=== PATIENT | male | born 1960 | race African-American/Black ===

== ENCOUNTER 2020-07-12 10:20 | Outpatient (REF) | payer MEDICAID, SELFPAY ==
--- NOTE | ~2020-07-12 | XR_ITS ---
EXAMINATION: XR CHEST CLINICAL INFORMATION: Dyspnea COMPARISON: None TECHNIQUE: 2 views of the chest were obtained. FINDINGS: No significant abnormality is noted involving the heart, lungs, mediastinum, bony thorax or soft tissues. XR/XR chest 2V IMPRESSION: Unremarkable chest examination.
== END 2020-07-12 10:21 | disposition home or self-care (01) ==
LOC: HO.XRAY 10:20
PROVIDERS: PCP Internal Medicine Geriatric Medicine; Visit Provider Internal Medicine Geriatric Medicine
DX: R06.00 Dyspnea, unspecified (principal)
CPT/HCPCS: 71046

== ENCOUNTER 2020-09-28 06:56 | Outpatient (REF) | payer MEDICAID, SELFPAY ==
--- NOTE | ~2020-09-28 | CT_ITS ---
EXAMINATION: CT HEAD WITHOUT CONTRAST CLINICAL INFORMATION: Pain in the right temporal region 1 opening jaw. History of trauma 3 weeks ago. COMPARISON: None TECHNIQUE: Contiguous axial imaging was performed from the skull base to vertex without intravenous administration of contrast. This CT examination was performed using dose optimization techniques as appropriate, variously including the following: *Automated exposure control *Adjustment of mA and/or kV according to patient size (this includes techniques or standardized protocols for targeted exams where dose is matched to indication/reason for exam; i.e. extremities or head) *Use of iterative reconstruction technique DLP: 806 mGy-cm FINDINGS: There is no evidence of acute intracranial hemorrhage or territorial infarction. No abnormal mass effect or midline shift is seen. Fisher to white matter differentiation is well preserved. No extra-axial fluid collections are identified. The ventricles are normal in size. There is no abnormal attenuation within the brain parenchyma. The osseous structures and soft tissues are normal. The temporomandibular joints are normal-appearing. The mastoid air cells and visualized portions of the paranasal sinuses are clear. CT/CT head/brain wo con IMPRESSION: Normal head CT.
== END 2020-09-28 06:57 | disposition home or self-care (01) ==
LOC: HO.CT 06:56
PROVIDERS: PCP Emergency Medicine; Visit Provider Emergency Medicine
DX: S09.8XXA Other specified injuries of head, initial encounter (principal); X58.XXXA Exposure to other specified factors, initial encounter; Y93.9 Activity, unspecified; Y92.9 Unspecified place or not applicable; Y99.9 Unspecified external cause status
CPT/HCPCS: 70450

== ENCOUNTER 2022-11-14 09:01 | Outpatient (REF) | payer MEDICAID, SELFPAY ==
[2022-11-14 11:44] LABS: Alanine Aminotransferase 34 U/L (0-40); Albumin Level 3.8 g/dL (3.5-5.0); Alkaline Phosphatase 66 U/L (39-117); Anion Gap 11 (12-20); Aspartate Amino Transferase 33 U/L (5-37); Bilirubin Total 0.3 mg/dL (0.0-1.0); Blood Urea Nitrogen 14 mg/dL (9-16); Calcium 9.4 mg/dL (8.4-10.2); Carbon Dioxide 24 mmol/L (22-29); Chloride 109 mmol/L (96-108); Cholesterol 135 mg/dL (<200); Estimated Glomerular Filt Rate > 60; Glucose Random 132 mg/dL (60-115); HDL Cholesterol 45 mg/dL (>40); LDL Cholesterol Calculated 75 mg/dL (<100); Potassium 4.3 mmol/L (3.3-5.1); Sodium 140 mmol/L (135-145); Total Protein 7.1 g/dL (6.5-8.0); Triglycerides 76 mg/dL (<150)
[2022-11-14 12:21] LABS: Creatinine Urine 176.44 mg/dL; Microalbum/Creatinine Ratio Ur 4.5 ug/mg cr (<30)
== END 2022-11-14 09:02 | disposition home or self-care (01) ==
LOC: HO.HHCL 09:01
PROVIDERS: Visit Provider Internal Medicine Geriatric Medicine
DX: I10 Essential (primary) hypertension (principal); E78.00 Pure hypercholesterolemia, unspecified; E11.9 Type 2 diabetes mellitus without complications; Z79.899 Other long term (current) drug therapy
CPT/HCPCS: 36415; 80053; 80061; 82043; 82570

== ENCOUNTER 2023-01-29 11:44 | Outpatient (REF) | payer MEDICAID, SELFPAY ==
[2023-01-30 08:03] LABS: ~Hepatitis C Antibody Nonreactive (Nonreactive)
== END 2023-01-29 11:45 | disposition home or self-care (01) ==
LOC: HO.HHCL 11:44
PROVIDERS: Visit Provider Internal Medicine Geriatric Medicine
DX: Z11.59 Encounter for screening for other viral diseases (principal)
CPT/HCPCS: 36415; 86803

== ENCOUNTER 2023-02-06 10:23 | Outpatient (AMB) | payer MEDICAID, SELFPAY ==
--- NOTE | 2023-02-06 10:25 | A.OFFVIS_ITS ---
Intake Vital Signs 02/06/23 10:32 Height 5 ft 7 in Weight 251 lb BMI 39.3 Handedness Right Intake Visit Reasons: New Pt - left 4th trigger finger Intake Note: Benja is a 62 year old right hand dominant male who presents today as a new patient for a evaluation of his left ring trigger finger. Patient reports his r ing finger has been locking and catching for about 6 months. No previous treatment. Allergies lisinopril Allergy (Intermediate, Verified 02/06/23 10:35) Cough HPI New Pt - left 4th trigger finger HPI Details 62-year-old male who presents in the off ice today, as a new patient, for an evaluation of left ring finger trigger finger. The patient reports his left ring finger has been locking and catching for about 6 months, since 08/2022. He denies any prior treatment. PFSH Surgical History (Updated 02/06/23 @ 10:33 by Charlene Trevizo) Hx of appendectomy Social History (Updated 02/06/23 @ 10:34 by Charlene Trevizo) Alcohol intake: never Patient Tobacco Use Status: Never used Tobacco Current occupational status: retired and disabled Current occupation: right hand dominant Review of Systems Const All systems reviewed & are unremarkable except as noted in HPI and below Physical Exam Vital Signs: BMI result Body Mass Index 39.3 Const General: cooperative and no acute distress Orientation/consciousness: patient oriented x3 Resp Effort & Inspection: normal respiratory effort and able to speak in complete sentences Cardio Peripheral pulses: Peripheral pulses 2+ throughout Skin General skin exam: no rashes or lesions noted Neuro General: patient oriented x3 Extrem Other: Left hand: Normal to inspection. No ecchymosis, erythema, or edema. Tenderness to palpation over the left ring finger A1 isabella with active locking and catching. Able to perform full finger flexion, extension, abduction, adduction, finger cross, okay sign, and thumbs up without deficit. Able to make a closed fist. Sensation intact. Capillary refill is brisk. Radial pulse intact. Assessment & Plan Assessment & Plan (1) Trigger finger, left ring finger: Code(s): M65.342 - Trigger finger, left ring finger Plan Mr. Riggs is a 62-year-old male who presents in the office today, as a new patient, for an evaluation of left ring finger trigger finger. The patient reports his left ring finger has been locking and catching for about 6 months, since 08/2022. He denies any prior treatment. The patient would like to move forward with surgical intervention. A preoperative appointment will be made with Dr. Braxton once she returns from her leave to meet with the patient and to discuss the procedure in more detail. Follow up will be at the preoperative appointment, or sooner if needed. Patient Instructions: Scribed for Vanessa Munroe PA-C by Cindy De La Rosa medical laboratory technologist, on 02/06/2023 at 10:33 am, EST. Coding Level of Care Code New Pt Level 4 (37061) Diagnoses Trigger finger, left ring finger M65.342
[2023-02-06 10:32] VITALS: BMI 39.3
== END 2023-02-06 10:53 | disposition home or self-care (01) ==
PROVIDERS: PCP Emergency Medicine; Visit Provider Physician Assistant
DX: M65.342 Trigger finger, left ring finger (principal)
CPT/HCPCS: 99204

== ENCOUNTER → 2023-02-06 10:23 | Outpatient (BNVA) | payer MEDICAID, SELFPAY | PROVIDERS: PCP Emergency Medicine; Visit Provider Physician Assistant | DX: M65.342 Trigger finger, left ring finger (principal) | CPT/HCPCS: 99212 ==

== ENCOUNTER 2023-05-01 10:27 | Outpatient (AMB) | payer MEDICAID, SELFPAY ==
[2023-05-01 10:32] VITALS: BMI 39.3
--- NOTE | 2023-05-01 10:32 | A.OFFVIS_ITS ---
Intake Vital Signs 05/01/23 10:32 Height 5 ft 7 in Weight 251 lb BMI 39.3 Intake Visit Reasons: Pre Op Lt RF trigger release 05/10/23 AR Intake Note: Benja 62 yr old male presents today for his Pre Op visit for his left RF trigger release 05/10/23 AR. Allergies lisinopril Allergy (Intermediate, Verified 05/01/23 10:32) Cough HPI Pre Op Lt RF trigger release 05/10/23 AR HPI Details Benja is a 62 year old right hand dominant Diabetic man who presents to discuss his left ring trigger finger. He complains of ~8 months painful locking of his ring finger He would like to discuss treatment options He is a Diabetic and he says this is well-controlled. He believes his most recent HgA1c was ~6.0% sometime in the last few months. He is unsure of the exact date & number. He says he is unemployed [facility] Medical History (Updated 05/01/23 @ 11:18 by Eben Kiran) Hyperlipidemia Hypertension Diabetes Surgical History Hx of appendectomy Social History Alcohol intake: never Patient Tobacco Use Status: Never used Tobacco Current occupational status: retired and disabled Current occupation: right hand dominant Review of Systems Const All systems reviewed & are unremarkable except as noted in HPI and below Physical Exam Vital Signs: BMI result Body Mass Index 39.3 Const General: cooperative, healthy appearing and no acute distress Orientation/consciousness: patient oriented x3 HEENT Head: Yes normocephalic and Yes atraumatic Eyes EOM: EOMs intact bilaterally Resp Effort & Inspection: normal respiratory effort and able to speak in complete sentences Cardio Jugular venous distension: no JVD Skin General skin exam: turgor normal Rashes: no rashes Neuro General: patient oriented x3 Extrem Other: Evaluation of Left Upper Extremity: The patient is alert, oriented, and in no acute distress Neuro: Median, Ulnar, Radial nerves motor and sensory intact and sensation is normal to the tips of all digits Vascular: Cap refill brisk ROM: He can make a fist and extend all his digits Visible and palpable locking and catching of the ring finger Tender over the A1 isabella of the ring finger Skin: No lacerations or abrasions. General: No Ecchymosis. No Erythema or evidence of infection. Psych Appearance: grossly normal Affect: normal affect Attitude: cooperative Assessment & Plan Assessment & Plan (1) Trigger finger, left ring finger: Code(s): M65.342 - Trigger finger, left ring finger (2) Diabetes: Code(s): E11.9 - Type 2 diabetes mellitus without complications Plan Assessment & Plan: 1. Left ring finger trigger finger I educated her about this condition I discussed operative and non-operative treatment options The patient would like to proceed with surgery The risks and benefits of operative treatment were discussed with the patient and the patient wishes to proceed with surgery. These risks include, but are not limited to risk of damage to blood vessels, nerves, tendons, infection, recurrence, incomplete relief of preoperative symptoms, persistent pain, possible need for further surgery and the risks associated with regional blocks and anesthesia. The plan is to take the patient to the operating room sometime on 05/10/23 for the following procedures: 1. Left ring finger trigger release, under local All of the preoperative paperwork including the consent was reviewed today. All the patient's questions were answered. The patient understands that they will be contacted by our health club attendant soon to schedule this procedure He denies blood thinners, asthma, heart, lung, kidney issues He is a Diabetic and says this is well controlled, but we do not have a HgA1c on file. He needs a recent HgA1c <8.1% to proceed with surgery Scribed for Lilia Braxton MD by Eben Kiran medical genetics director, on 05/01/23 at 11:15 AM, EST. Coding Level of Care Code Est Pt Level 4 (71391) Diagnoses Trigger finger, left ring finger M65.342 Diabetes E11.9
== END 2023-05-01 11:16 | disposition home or self-care (01) ==
PROVIDERS: PCP Emergency Medicine; Visit Provider Orthopaedic Surgery
DX: M65.342 Trigger finger, left ring finger (principal); E11.9 Type 2 diabetes mellitus without complications
CPT/HCPCS: 99214

== ENCOUNTER → 2023-05-01 10:27 | Outpatient (BNVA) | payer MEDICAID, SELFPAY | PROVIDERS: PCP Emergency Medicine; Visit Provider Orthopaedic Surgery | DX: Z01.818 Encounter for other preprocedural examination (principal); M65.342 Trigger finger, left ring finger; E11.9 Type 2 diabetes mellitus without complications | CPT/HCPCS: 99212 ==

== ENCOUNTER 2023-05-10 08:31 | Day surgery (SDC) | payer MEDICAID, SELFPAY ==
--- NOTE | 2023-05-10 09:01 | W.PM.OPN ---
Operative Note Operative Note Date of Service: 05/10/23 Narrative: Operative Note Preop diagnosis: 1. Left ring finger Trigger finger Postop diagnosis: 1. Left ring finger Trigger finger Procedure: 1. Left ring finger A1 isabella release Surgeon: Lilia Braxton MD Anesthesia: local block using 1% lidocaine with epinephrine Findings: No locking or catching after A1 isabella release EBL: Less than 5 mL Tourniquet time: None Specimens: None Complications: None Disposition: Brought to recovery room in stable condition Plan: Follow-up for 10-14 days for wound check and suture removal Indications: The patient is 62 years old, with a left ring finger trigger finger that has been unresponsive to nonoperative management. The risks and benefits of operative treatment including but not limited to risk of damage to blood vessels, nerves, tendons, infection, persistent pain, persistent symptoms, recurrence or possible need for additional surgery were discussed with the patient and the patient wishes to proceed with surgery. Procedure: Once consent was obtained a local block was performed in the preop area using a combination of 1% lidocaine with epinephrine. The patient was then brought back to the operating suite and placed on the operative table in supine position. The left upper extremity was prepped and draped in a standard surgical fashion. Once assured that we had a good block, a 1.5 cm oblique incision was made centered over the A1 isabella of the left ring finger . The incision was made through the skin to the subcutaneous tissues using a #15 blade. Careful dissection was made down to the level of the A1 isabella using tenotomy scissors, with care being taken to protect the nearby neurovascular structures. A longitudinal incision was made in the A1 isabella 1st using a #15 blade, then using tenotomy scissors under direct visualization. The A1 isabella was noted to be thickened. Following our A1 isabella release, we no longer saw any locking or catching of the digit with flexion and extension. Once satisfied with our A1 isabella release the wound was copiously irrigated with normal saline and hemostasis was obtained with a brief period of local pressure. The skin edges were reapproximated with some 5.0 nylon suture material and a sterile dressing was applied. The patient appears to have tolerated the procedure well and with no complications. All digits were well vascularized at the conclusion of the case.
[2023-05-10 09:18] VITALS: BP 155/86; PULSE 71; RESP 18; TEMP 36.3; O2SAT 95; BMI 40.6
--- NOTE | 2023-05-10 10:56 | MHC.SHP ---
Pre-Procedural Eval Section A - 24 Hr Update-Section A only Date of Service: 05/10/23 The patient is an INPATIENT: No Changes since office visit: No Cold of Flu in the past 2 weeks, No New Medical Problems, No Changes in Medication and No Patient answered all questions The patient has been examined within 24 hours of the surgical procedure. The History & Physical has been completed within 30 days and I have reviewed it.: Yes Section B - Complete if H&P > 30 days Chief Complaint: Trigger finger, left ring finger Allergies: Allergies Allergy/AdvReac Type Severity Reaction Status Date / Time lisinopril Allergy Intermediate Cough Verified 05/01/23 10:32 Plan I have reviewed the history and physical and performed a pertinent physical examination on my patient. No changes have occurred unless specified. Time Spent With Patient Time: Total time managing care of this patient today ____ minutes.
[2023-05-10 11:56] VITALS: BP 148/88; PULSE 63; RESP 20; O2SAT 95
== END 2023-05-10 12:15 | disposition home or self-care (01) ==
PROVIDERS: PCP Internal Medicine Geriatric Medicine; Visit Provider Orthopaedic Surgery
PROC: (CPT 26055; principal; 2023-05-10 11:20)
DX: M65.342 Trigger finger, left ring finger (principal); I10 Essential (primary) hypertension; E78.5 Hyperlipidemia, unspecified; E11.9 Type 2 diabetes mellitus without complications; Z88.8 Allergy status to other drugs, medicaments and biological substances
CPT/HCPCS: 26055; J0171

== ENCOUNTER → 2023-05-10 08:31 | Outpatient (BNV) | payer MEDICAID, SELFPAY | PROVIDERS: PCP Internal Medicine Geriatric Medicine; Visit Provider Orthopaedic Surgery | DX: M65.342 Trigger finger, left ring finger (principal) | CPT/HCPCS: 26055 ==

== ENCOUNTER 2023-05-23 12:42 | Outpatient (AMB) | payer MEDICAID, SELFPAY ==
--- NOTE | 2023-05-23 12:53 | MHC.OFFVIS ---
Intake Vital Signs 05/23/23 12:54 Height 5 ft 7 in Weight 257 lb BMI 40.2 Intake Visit Reasons: PO Lt RF trigger release 05/10/23 AR Intake Note: Benja 62 yr old male presents today for his P/O visit for his left RF trigger release from 05/10/23. States his finger no longer triggers. He has mild swelling. Allergies lisinopril Allergy (Intermediate, Verified 05/23/23 12:56) Cough HPI PO Lt RF trigger release 05/10/23 AR HPI Details Benja is a 62 year old right hand dominant Diabetic man who returns S/P left ring finger trigger release, DOS: 05/10/23. He says he is doing well, denies any locking or catching, and is happy with the results of his surgery. He does feel some mild swelling in his finger. [facility] Medical History (Updated 05/01/23 @ 11:18 by Eben Kiran) Hyperlipidemia Hypertension Diabetes Surgical History Hx of appendectomy Social History Alcohol intake: never Patient Tobacco Use Status: Never used Tobacco Current occupational status: retired and disabled Current occupation: right hand dominant Review of Systems Const All systems reviewed & are unremarkable except as noted in HPI and below Physical Exam Vital Signs: BMI result Body Mass Index 40.2 Const General: no acute distress and alert Orientation/consciousness: patient oriented x3 Neuro General: patient oriented x3 Extrem Other: The patient was alert oriented and in no acute distress The incision is healing well with no erythema drainage or evidence of infection. Sutures removed and Steri-Strips applied He can make a fist and extend all his digits No locking or catching Sensation is intact Cap refill is brisk Psych Appearance: grossly normal Affect: normal affect Attitude: cooperative Assessment & Plan Assessment & Plan (1) Trigger finger, left ring finger: Code(s): M65.342 - Trigger finger, left ring finger (2) Diabetes: Code(s): E11.9 - Type 2 diabetes mellitus without complications Plan Assessment & Plan: 1. Left ring finger trigger finger, S/P release DOS: 05/10/23 The patient appears to be doing well post-operatively I educated him about the post-operative course I explained the signs and symptoms of infection, if the patient develops any new or worsening erythema, drainage, pain, or warmth they should contact the clinic or attend the ED. I discussed activity modifications, he is to lift nothing heavier than a cellphone for the next two weeks He will perform gentle ROM exercises at home He should avoid any underwater activities for the next 5 days He should gently massage about the incision site to reduce the risk of hypersensitivity He can follow up prn Scribed for Lilia Braxton MD by Eben Kiran, biomedical analytical scientist, on 05/23/23 at 1:10 PM, EST. Coding Level of Care Code Global (34234) Diagnoses Trigger finger, left ring finger M65.342 Diabetes E11.9
[2023-05-23 12:54] VITALS: BMI 40.2
== END 2023-05-23 13:13 | disposition home or self-care (01) ==
PROVIDERS: PCP Emergency Medicine; Visit Provider Orthopaedic Surgery
DX: M65.342 Trigger finger, left ring finger (principal); E11.9 Type 2 diabetes mellitus without complications
CPT/HCPCS: 99024

== ENCOUNTER → 2023-05-23 12:42 | Outpatient (BNVA) | payer MEDICAID, SELFPAY | PROVIDERS: PCP Emergency Medicine; Visit Provider Orthopaedic Surgery | DX: Z47.89 Encounter for other orthopedic aftercare (principal); Z98.890 Other specified postprocedural states; Z87.39 Personal history of other diseases of the musculoskeletal system and connective tissue | CPT/HCPCS: 99212 ==

== ENCOUNTER 2023-05-30 11:41 | Outpatient (REF) | payer MEDICAID, SELFPAY ==
--- NOTE | ~2023-05-30 | XR_ITS ---
EXAMINATION: XR KNEE, RIGHT CLINICAL INFORMATION: Chronic right knee pain COMPARISON: Right knee x-ray on 09/01/2014 TECHNIQUE: Four views of the right knee. FINDINGS: BONES: Bony structures are intact. There is no focal bone destruction or periosteal reaction seen. JOINTS: Alignment of joints is normal. SOFT TISSUE: Soft tissue is normal. No radiopaque foreign body or abnormal air collection is seen. XR/XR knee RT 4V IMPRESSION: 1. Unchanged Normal x-rays of right knee. No fracture or dislocation or signs of osteomyelitis are found.
== END 2023-05-30 11:42 | disposition home or self-care (01) ==
LOC: HO.HHCX 11:41
PROVIDERS: Visit Provider Internal Medicine Geriatric Medicine
DX: M25.561 Pain in right knee (principal); G89.29 Other chronic pain
CPT/HCPCS: 73564

== ENCOUNTER 2023-06-07 13:31 | Outpatient (REF) | payer MEDICAID, SELFPAY ==
--- NOTE | ~2023-06-07 | XR_ITS ---
EXAMINATION: XR CHEST CLINICAL INFORMATION: Cough since Sunday COMPARISON: 07/12/2020 TECHNIQUE: 2 views of the chest were obtained. FINDINGS: No significant abnormality is noted involving the heart, lungs, mediastinum, bony thorax or soft tissues. XR/XR chest 2V IMPRESSION: Unremarkable examination.
== END 2023-06-07 13:32 | disposition home or self-care (01) ==
LOC: HO.HHCX 13:31
PROVIDERS: Visit Provider Internal Medicine
DX: J10.1 Influenza due to other identified influenza virus with other respiratory manifestations (principal); R05.1 Acute cough
CPT/HCPCS: 71046

== ENCOUNTER 2023-06-21 13:36 | Outpatient (REF) | payer MEDICAID, SELFPAY ==
[2023-06-21 15:58] LABS: MANUAL DIFF FLAG NO
[2023-06-21 16:32] LABS: Creatinine Urine 244.72 mg/dL; Microalbum/Creatinine Ratio Ur 11.4 ug/mg cr (<30)
[2023-06-21 16:33] LABS: Basophils Absolute Auto 0.1 X10*3/uL (0.0-0.2); Basophils Percent Auto 0.8 % (0-2); Eosinophils Absolute Auto 0.2 X10*3/uL (0.0-0.4); Eosinophils Percent Auto 2.4 % (0-4); Hematocrit 45.6 % (42.0-52.0); Hemoglobin 14.9 g/dl (14.0-18.0); Imm Gran Abs Auto 0.03 X10*3/uL (0.00-0.03); Imm Gran Pct Auto 0.4 % (0.0-0.4); Lymphocytes Absolute Auto 2.2 X10*3/uL (1.2-4.9); Lymphocytes Percent Auto 26.4 % (20-40); Mean Corpuscular HGB Conc 32.7 g/dl (31.0-36.0); Mean Corpuscular Hemoglobin 28.4 pg (27.0-33.0); Mean Corpuscular Volume 86.9 fL (80.0-98.0); Mean Platelet Volume 12.8 fL (9.4-12.4); Monocytes Absolute Auto 0.6 X10*3/uL (0.1-1.2); Monocytes Percent Auto 7.3 % (2-11); Neutrophils Absolute Auto 5.2 x10*3/uL (2.0-8.3); Neutrophils Percent Auto 62.7 % (45-73); Platelet Count 248 X10*3/uL (160-400); Red Blood Count 5.25 X10*6/uL (4.60-5.80); Red Cell Distribution Width 13.1 % (11.0-16.0); White Blood Count 8.3 X10*3/uL (4.8-10.8)
[2023-06-21 16:34] LABS: Alanine Aminotransferase 27 U/L (0-40); Albumin Level 4.1 g/dL (3.5-5.0); Alkaline Phosphatase 70 U/L (39-117); Anion Gap 10 (12-20); Aspartate Amino Transferase 30 U/L (5-37); Bilirubin Total 0.5 mg/dL (0.0-1.0); Blood Urea Nitrogen 15 mg/dL (9-16); Calcium 9.6 mg/dL (8.4-10.2); Carbon Dioxide 28 mmol/L (22-29); Chloride 107 mmol/L (96-108); Cholesterol 147 mg/dL (<200); Estimated Glomerular Filt Rate > 60; Glucose Random 101 mg/dL (60-115); HDL Cholesterol 46 mg/dL (>40); LDL Cholesterol Calculated 75 mg/dL (<100); Potassium 3.8 mmol/L (3.3-5.1); Sodium 141 mmol/L (135-145); Total Protein 7.7 g/dL (6.5-8.0); Triglycerides 130 mg/dL (<150)
== END 2023-06-21 13:37 | disposition home or self-care (01) ==
LOC: HO.HHCL 13:36
PROVIDERS: Visit Provider Internal Medicine Geriatric Medicine
DX: E11.9 Type 2 diabetes mellitus without complications (principal); I10 Essential (primary) hypertension; M25.561 Pain in right knee; G89.29 Other chronic pain
CPT/HCPCS: 36415; 80053; 80061; 82043; 82570; 85025

== ENCOUNTER 2024-04-14 08:12 | Outpatient (REF) | payer MEDICAID, SELFPAY ==
--- OUTSIDE RECORDS SUMMARY | 2024-04-14 08:26 | XMS_ITS | Encounter Summary ---
Author Organization [employer] Address [address] [place] [address] Care Team Providers Care Director Of Consumer Affairs Name Role Phone Name, Vignesh MCCANN Primary Care Provider [phone] Reason for Visit * Reason Onset Date Comments Med Refill 03/18/2024 Encounter Details Date Type Department Care Team (Late st Contact Info) Description 03/18/2024 Refill [facility] [address] [place], [place] [id number] Name, MD Vignesh [address] [place] [address] Type 2 diabetes mellitus without complication, without long-term current use of insulin ([facility]) Social History Tobacco Use Types Packs/Day Years Used Date Smoking Tobacco: Never Passive Smoke Exposure: Never Smokeless Tobacco: Never Alcohol Use Standard Drinks/Week Comments Never 0 (1 standard drink = 0.6 oz pur e alcohol) Alcohol Answer Date Recorded Frequency of Alcohol Consumption Not on file 09/19/2023 Average Number of Drinks Not on file 024 Frequency of Binge Drinking Not on file 09/02 Score 0 09/19/2023 Depression Answer Date Recorded Patient Health Questionnaire-9 Score 0 11/09/2022 Housing Stability Answer Date Recorded What is your housing situation today? I have housing today, but I am worried about losing housing in the future 12/25/[address] you li ve. Do you have problems with any of the following? None of the above 12/25/2022 Food Insecurity Answer Date Recorded Within the past 12 months, y ou worried that your food would run out before you got money to buy more: Never True 12/25/2022 Within the past 12 months,th e food you bought just didn't last and you didn't have enough money to get more: Never True Transportation Answer Date Recorded In the past 12 months, has l ack of transportation kept you from medical appts, meetings, work or from getting things needed for daily living? No 12/25/2022 Utilities Answer Date Recorded In the past 12 months, has t he electric, gas, oil or water company threatened to shut off services in your home? No 12/25/2022 Depression Answer Date Recorded Patient Health Questionnaire-2 Score 0 11/09/2022 Sex and Gender Information Value Date Recorded Sex Assigned at Male 01/02/2022 10:20 AM EDT Legal Sex Male 10:20 AM EDT Gender Identity Male 01/02/2022 10:20 AM EDT Sexual Orientation Choose not to disclose 2021 10:20 AM EDT documented as of this encounter Plan of Treatment Upcoming Encounters Date Type Department Care Team (Late st Contact Info) Description 04/17/2024 2:30 PM EST Office Visit [facility] [address] [place] [address] Drake Clarke, DMD [address] [place] [address] 05/05/2024 2:00 PM EST Clinical Support [facility] [address] [place] [address] documented as of this encounter Visit Diagnoses Diagnosis Type 2 diabetes mellitus without complication, without long-term current use of insulin ([facility]) documented in this encounter Additional Health Concerns Assessment Noted Time PHQ-9 Depression Total Score: 0 11/10/19 23 11:25 AM EDT documented as of this encounter Care Teams Director Of Consumer Affairs Relationship Specialty Start Date End Date Name, MD Vignesh [address] [place] [address] PCP - General Family Medicine 04/15/15 documented as of this encounter
--- OUTSIDE RECORDS SUMMARY | 2024-04-14 08:26 | XMS_ITS | Encounter Summary ---
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 male. Time Out: Date: 03/17/2024 Tooth: #7 Procedure: Root Canal Verified the above with patient, assistant professor of theater, and provider. Confirmed via patient's chart, intraorally and by radiographs. Emergency Department Clinician: not applicable Medical Hx: Vitals: Blood pressure 110/70. Medications, Med Hx reviewed with patient and updated in chart. Consent Obtained: The risks, benefits, indications, potential complications, and alternatives were explained to the patient and informed consent was obtained with good understanding. Treatment Provided: Dental procedures in this visit [id number] - ENDODONTIC THERAPY, ANTERIOR TOOTH (EXCLUDING FINAL JUDAISM) 7 (Completed) Service provider: Mojgan Hernandez DDS Billing provider: Mojgan Hernandez DDS [id number] - CASE PRESENTATION, DETAILED AND EXTENSIVE TREATMENT PLANNING (Completed) Service provider: Mojgan Hernandez DDS Billing provider: Mojgan Hernandez DDS Diagnosis: Attrition Topical: 20% Benzocaine Anesthesia: 2% Lidocaine (Xylocaine) w/ 1:100,000 epinephrine Number of Cartridges: 1.5 Injection Type: Buccal infiltration, Palatal infiltration, Anterior superior alveolar nerve block, and Nasopalatine nerve block Confirmed profound anesthesia. Isolation: [place] Created access preparation. Canal Location: L Working length radiograph taken: 21 mm Irrigated with: 6% NaOCl, RC Prep, and 17% EDTA Instrumented using: Hand files Final File: 40 Multi-Step Visit: N/A Master cone size: 40 Master cone radiograph taken. Sealer: Bioceramic Sealer Obturation Material: Melody Percha Removed excess melody percha. Restorative Material: Resin Modified Glass Ionomer Final radiograph taken. Patient tolerated procedure well, no complications. Post op instructions given. Dismissed in good condition. NV: POC and crown prep - Dr. Clarke Chief Nurse Executive: Gabbi Munguia Dentist: Mojgan Hernandez DDS documented in this encounter Plan of Treatment Upcoming Encounters Date Type Department Care Team (Late st Contact Info) Description 04/17/2024 2:30 PM EST Office Visit [facility] [address] [place] [address] Drake Clarke, DMD [address] [place] [address] 05/05/2024 2:00 PM EST Clinical Support [facility] [address] [place] [address] documented as of this encounter Procedures Procedure Name Priority Date/Time Associated Diagnosis Comments 7 ENDODONTICS - ENDODONTIC THERAPY (INCLUDING TREATMENT PLAN, CLINICAL PROCEDURES AND FOLLOW-UP CARE) - ENDODONTIC THERAPY, ANTERIOR TOOTH (EXCLUDING FINAL JUDAISM) Routine 03/17/2024 2:30 PM EST [facility] - PROFESSIONAL VISITS - CASE PRESENTATION, SUBSEQUENT TO DETAILED AND EXTENSIVE TREATMENT PLANNING Routine 03/17/2024 2:30 PM EST documented in this encounter Visit Diagnoses Diagnosis Excessive attrition of teeth, limited to enamel- Primary documented in this encounter Additional Health Concerns Assessment Noted Time PHQ-9 Depression Total Score: 0 11/10/19 23 11:25 AM EDT documented as of this encounter Care Teams Sales Operations Assistant Relationship Specialty Start Date End Date Name, MD Vignesh [address] [place] [address] PCP - General Family Medicine 04/15/15 documented as of this encounter
--- OUTSIDE RECORDS SUMMARY | 2024-04-14 08:26 | XMS_ITS | Encounter Summary ---
Author Organization [employer] [facility] Address [address] [place] [address] [address] [place] [address] Care Team Providers Care Automatic Mounter Name Role Phone Name, Vignesh MCCANN Primary Care Provider [phone] Encounter Details Date Type Department Care Team (Latest Contact Info) Description 12/08/2021 Abstract [facility] CONVERSIONS Dental, Provider, DDS Social History Tobacco Use Types Packs/Day Years Used Date Smoking Tobacco: Never Assessed Sex and Gender Information Value Date Recorded [...] Description 04/17/2024 2:30 PM EST Office Visit [facility] ADULT DENTAL [address] [place] [address] Drake Clarke, RACHEL [address] [place] [address] 05/05/2024 2:00 PM EST Clinical Support [facility] MEDICINE [address] [place] [address] documented as of this encounter Visit Diagnoses Not on filedocumented in this encounter Care Teams Automatic Mounter Relationship Specialty Start Date End Date Name, MD Vignesh [address] [place] [address] PCP - General Family Medicine 04/15/15 documented as of this encounter
--- OUTSIDE RECORDS SUMMARY | 2024-04-14 08:26 | XMS_ITS | Clinical Summary ---
Author Organization [facility] Address [address] [place] [address] Care Team Providers Care Installer Inspector Final Name Role Phone Unavailable Primary Care Provider Unavailabl e Social History Tobacco Use Types Packs/Day Years Used Date Smoking Tobacco: Never Assessed Sex and Gender Information Value Date Recorded Sex Assigned at Not on file Gender Identity Not on file Sexual Orientation Not on file Plan of Treatment Health Maintenance Due Date Last Done Comments Hepatitis C Screening 1961 COVID-19 Vaccine (#1) 01/15/1962 Depression Screening 1973 Preventative Health Evaluation 07/16/1979 DTap / Tdap / Td (1 - Tdap) 1980 Colon Cancer Screening (Colonoscopy) 2006 Shingrix-Zoster Vaccine (1 of 2) 07/16/2011 Influenza Vaccine (#1) 2023 RSV Adult > 60+ Yrs or Pregn ant (1 - 1-dose 75+ series) 2036 Hepatitis B Vaccines Aged Out No long er eligible based on patient's age to complete this topic Pneumococcal Vaccine Aged Out No long er eligible based on patient's age to complete this topic RSV Ped < 20 months Aged Out No longe r eligible based on patient's age to complete this topic Advance Directives For more information, please contact: [phone] Documents on File Type Date Recorded Patient Salvage Mend Worker Expl anation Advance Directive and Living Will 06/28/2015 10:19 AM
--- OUTSIDE RECORDS SUMMARY | 2024-04-14 08:26 | XMS_ITS | Clinical Summary ---
Author Organization [facility] Address [address] [place] [address] Care Team Providers Care Dielectric Testing Machine Operator Name Role Phone Unavailable Primary Care Provider Unavailabl e Allergies No known active allergies Medications Medication Sig Dispensed Refills Start Date End Date Status ibuprofen (ADVIL,MOTRIN) 600 MG tabletIndications:Rot ator cuff (capsule) sprain, unspecified laterality, subsequent encounter TAKE 1 TABLET BY MOUTH 3 TIMES DAILY NEEDED. 90 tablet 1 10/19/2014 Active aspirin 81 MG tablet Aspirin 81 MG Oral Tablet Delayed Release TAKE 1 TABLET DAILY. ; Start Date: 06/15/2014; End Date: 06/15/2014 Active lisinopril (PRINIVIL,ZeSTRIL) 10 MG tablet 10/16/2014 Active metFORMIN (GLUCOPHAGE) 1000 MG tablet 10/16/2014 Active Active Problems Problem Noted Date Diagnosed Date Type II diabetes mellitus 06/15/2014 Essential hypertension 06/15/2014 Disorder of bursae and tendons in shoulder regio n 06/15/2014 Sprain of rotator cuff capsule 06/15/2014 Social History Tobacco Use Types Packs/Day Years Used Date Smoking Tobacco: Never Assessed Sex and Gender Information Value Date Recorded Sex Assigned at Not on file Gender Identity Not on file Sexual Orientation Not on file Last Filed Vital Signs Vital Sign Reading Time Taken Comments Blood Pressure 133/79 06/15/2014 11:38 AM EDT Pulse 61 06/15/2014 11:38 AM EDT Temperature - - Respiratory Rate - - Oxygen Saturation - - Inhaled Oxygen Concentration - - Weight 101 kg (222 lb 0.1 oz) 06/15/2014 11:38 A M EDT Height - - Body Mass Index - - Plan of Treatment Health Maintenance Due Date Last Done Comments Hepatitis C Virus Screening 1961 HIV Screening 1974 DTaP/Tdap/Td Vaccines (1 - Tdap) 1980 Pneumococcal Vaccines 50+ (1 of 1 - PCV) 07/16/2011 Zoster (Shingles) Vaccine (1 of 2) 07/16/2011 COVID-19 Vaccine (2023-2 5 season) 2023 RSV Vaccine 60 years and old er and Patients (1 - 1-dose 75+ series) 2036 Hepatitis B Vaccines Aged Out No long er eligible based on patient's age to complete this topic Pneumococcal Vaccine: Pediat antoni (0-5 Years) and At-Risk Patients (6 to 49 Years) Aged Out No longer eligible b ased on patient's age to complete this topic
--- OUTSIDE RECORDS SUMMARY | 2024-04-14 08:26 | XMS_ITS | Encounter Summary ---
Author Organization [employer] Address [address] [facility] 7[address] [place] [address] Care Team Providers Care Gin Inspector Name Role Phone Name, Vignesh MCCANN Primary Care Provider [phone] Reason for Visit * Reason Comments Diabetes Hypertension Encounter Details Date Type Department Care Team (Late st Contact Info) Description 04/01/2024 2:00 PM EST Office Visit [facility] [address] [place], [place] [phone] Name, MD Vignesh [address] [place] [address] Type 2 diabetes mellitus without complication, without long-term current use of insulin ([facility]) (Primary Dx); SYDNIE on CPAP Social History Tobacco Use Types Packs/Day Years Used Date Smoking Tobacco: Never Passive Smoke Exposure: Never Smokeless Tobacco: Never Tobacco Cessation:Counseling Given: Not Answered Alcohol Use Standard Drinks/Week Comments Never 0 [...] Sign Reading Time Taken Comments Blood Pressure 144/86 04/01/2024 2:07 PM EST Pulse 68 04/01/2024 2:07 PM EST Temperature 36.2 ??C (97.2 ??F) 04/01/2024 2:07 PM ES T Respiratory Rate 21 04/01/2024 2:07 PM EST Oxygen Saturation 98% 04/01/2024 2:07 PM EST Inhaled Oxygen Concentration - - Weight 110 kg (241 lb 9.6 oz) 04/01/2024 2:07 PM EST Height 170.2 cm (5' 7 ) 04/01/2024 2:07 PM EST Body Mass Index 37.84 04/01/2024 2:07 PM EST documented in this encounter Progress Notes * Vignesh Trammell, - 04/01/2024 2:00 PM EST Subjective Patient ID: Benja Riggs is a 63 y.o. male who presents for Diabetes and Hypertension. Patient comes for a follow-up visit. He does not bring his glucose meter. He is hemoglobin A1c is much worse. He admits to polyuria and polydipsia. Patient explains to me that he is using his oral medications but he stopped using his Trulicity last year. He did not have any GI side effects of the Trulicity. He stopped the medication because he was dissatisfied with insufficient weight loss. Review of Systems Constitutional: Positive for unexpected weight change. Negative for chills, fatigue and fever. HENT: Negative for sore throat. Respiratory: Negative for cough, chest tightness and shortness of breath. Cardiovascular: Negative for chest pain, palpitations and leg swelling. Gastrointestinal: Negative for abdominal pain, blood in stool, nausea and vomiting. Endocrine: Positive for polydipsia and polyuria. Visit Vitals BP (!) 144/86 (BP Location: Left arm, Patient Position: Sitting, BP Cuff Size: Adult) Pulse 68 Temp 97.2 ??F (36.2 ??C) (Temporal) Resp 21 Ht 5' 7 (1.702 m) Wt 241 lb 9.6 oz (110 kg) SpO2 98% BMI 37.84 kg/m?? Smoking Status Never BSA 2.28 m?? Objective Physical Exam Constitutional: Appearance: Normal appearance. Cardiovascular: Rate and Rhythm: Normal rate and regular rhythm. Heart sounds: No murmur heard. Pulmonary: Effort: Pulmonary effort is normal. No respiratory distress. Breath sounds: No wheezing, rhonchi or rales. Abdominal: Palpations: Abdomen is soft. Tenderness: There is no abdominal tenderness. Musculoskeletal: Right lower leg: No edema. Left lower leg: No edema. Neurological: Mental Status: He is alert. Lab Results Component Value Date HGBA1C 11.7 (A) 04/01/2024 HGBA1C 6.7 (A) 09/19/2023 HGBA1C 6.6 (A) 01/29/2023 HGBA1C 7.0 (A) 11/09/2022 HGBA1C 6.7 (A) 04/17/2022 HGBA1C 6.3 (H) 02/23/2022 HGBA1C 8.1 (H) 01/12/2020 HGBA1C 8.1 (H) 01/12/2020 Assessment/Plan Diagnoses and all orders for this visit: Type 2 diabetes mellitus without complication, without long-term current use of insulin ([facility]) Comments: Patient blood sugar is much worse. This is secondary to him stopping his Trulicity nearly 9 months ago. He did not have any side effects to Trulicity but he thought he was not losing any weight on the medication. His blood sugar is now much worse. Recent weight loss has to do with uncontrolled diabetes. I recommended to restart using Trulicity. Since he has been off the medication for so long we will start the initial dose of 0.75 mg weekly and increase monthly as tolerated. He is recommended to use the rest of his oral medications as prescribed. He is reminded to avoid sweets and soda and walk daily. Check the fasting blood work listed below. Orders: - POCT Glucose - POCT HGB A1C - CBC auto differential; Future - Comprehensive Metabolic Panel; Future - Albumin, Random Urine W/Creatinine; Future - Lipid Panel, Standard; Future SYDNIE on CPAP Comments: Currently untreated. Patient is following with sleep medicine services of [facility]. Heis awaiting an appointment for repeat sleep study for CPAP titration. We discussed the importance of avoiding driving drowsy, avoid alcohol and sedatives (he does not drink alcohol). Other orders - Dulaglutide (Trulicity) 0.75 MG/0.5ML solution auto-injector; Inject 0.75 mg under the skin 1 (one) time per week. documented in this encounter Plan of Treatment Upcoming Encounters Date Type Department Care Team (Late st Contact Info) Description 04/17/2024 2:30 PM EST Office Visit [facility] AD[facility] [address] [place] [address] Drake Clarke, DMD [address] [place] [address] 05/05/2024 2:00 PM EST Clinical Support [facility] [address] [place] [address] Scheduled Orders Name Type Priority Associated Diagnoses Orde r Schedule CBC auto differential Lab Routine Type 2 diabetes mellitus without complication, without long-term current use of insulin ([facility]) Expected: 04/01/2024 (Approximate), Expires: 04/01/2025 Comprehensive Metabolic Panel Lab Routine Type 2 diabetes mellitus without complication, without long-term current use of insulin (CMS/HCC) Expected: 04/01/2024 (Approximate), Expires: 04/01/2025 Albumin, Random Urine W/Creatinine Lab Routine Type 2 diabetes mellitus without complication, without long-term current use of insulin ([facility]) Expected: 04/01/2024 (Approximate), Expires: 04/01/2025 Lipid Panel, Standard Lab Routine Type 2 diabetes mellitus without complication, without long-term current use of insulin ([facility]) Expected: 04/01/2024 (Approximate), Expires: 04/01/2025 documented as of this encounter Procedures Procedure Name Priority Date/Time Associated Diagnosis Comments POCT GLYCATED HEMOGLOBIN, TOTAL Routine 04/01/2024 2:09 PM EST Type 2 diabetes mellitus without complication, without long-term current use of insulin ([facility]) POCT GLUCOSE Routine 04/01/2024 2:08 PM EST Type 2 diabetes mellitus without complication, without long-term current use of insulin ([facility]) documented in this encounter Results * (ABNORMAL) POCT HGB A1C (04/01/2024 2:09 PM EST) Pathologist [facility] Hemoglobin A1C 11.7(A) 4.0 - 6.0 % QC Media Lot # [id number] Lot# Expiration Date 71,[id number] Blood 04/01/2024 2:09 PM EST Result Kali Trammell MD POINT OF CARE TEST ENTER/EDIT OR DERABLES Final Result * (ABNORMAL) POCT Glucose (04/01/2024 2:08 PM EST) Pathologist [facility] Glucose Blood, POC 359(A) 60 - 200 mg/dL QC Media Lot # [id number] Lot# Expiration Date 53,[id number] Blood Capillary blood specimen / Unknown 04/01/2024 2:08 PM EST us Vignesh Trammell MD POINT OF CARE TEST ENTER/EDIT OR DERABLES Final Result documented in this encounter Visit Diagnoses Diagnosis Type 2 diabetes mellitus without complication, without long-term current use of insulin ([facility])- Primary SYDNIE on CPAP documented in this encounter Additional Health Concerns Assessment Noted Time PHQ-9 Depression Total Score: 0 11/10/19 23 11:25 AM EDT documented as of this encounter Care Teams Gin Inspector Relationship Specialty Start Date End Date Name, MD Vignesh [address] [place] [address] PCP - General Family Medicine 04/15/15 documented as of this encounter
--- OUTSIDE RECORDS SUMMARY | 2024-04-14 08:26 | XMS_ITS | Encounter Summary ---
Author Organization [employer] Address [address] [place] [address] Care Team Providers Care Fence Gate Assembler Name Role Phone Name, Vignesh MCCANN Primary Care Provider [phone] Encounter Details Date Type Department Care Team (Latest Contact Info) Description 04/01/2024 Travel Social History Tobacco Use Types Packs/Day Years [...] Description 04/17/2024 2:30 PM EST Office Visit [facility] ADULT DENTAL [address] [place] [address] Drake Clarke, RACHEL [address] [place] [address] 05/05/2024 2:00 PM EST Clinical Support [facility] MEDICINE [address] [place] [address] documented as of this encounter Visit Diagnoses Not on filedocumented in this encounter Additional Health Concerns Assessment Noted Time PHQ-9 Depression Total Score: 0 11/10/19 23 11:25 AM EDT documented as of this encounter Care Teams Fence Gate Assembler Relationship Specialty Start Date End Date Name, MD Vignesh [address] [place] [address] PCP - General Family Medicine 04/15/15 documented as of this encounter
--- OUTSIDE RECORDS SUMMARY | 2024-04-14 08:26 | XMS_ITS | Encounter Summary ---
Author Organization [employer] [facility] Address [address] [place] [address] [address] [place] [address] Care Team Providers Care Outside Plant Technician Name Role Phone Name, Vignesh MCCANN Primary Care Provider [phone] Encounter Details Date Type Department Care Team (Latest Contact Info) Description 01/22/[address] [facility] CONVERSIONS Dental, Provider, DDS Social History [...] Description 04/17/2024 2:30 PM EST Office Visit [facility] ADULT DENTAL [address] [place] [address] Drake Clarke, RACHEL [address] [place] [address] 05/05/2024 2:00 PM EST Clinical Support [facility] MEDICINE [address] [place] [address] documented as of this encounter Visit Diagnoses Not on filedocumented in this encounter Care Teams Outside Plant Technician Relationship Specialty Start Date End Date Name, MD Vignesh [address] [place] [address] PCP - General Family Medicine 04/15/15 documented as of this encounter
--- OUTSIDE RECORDS SUMMARY | 2024-04-14 08:26 | XMS_ITS | Encounter Summary ---
Author Organization [employer] [facility] Address [address] [facility] [address]t [place] [address] Care Team Providers Care Keymodule Assembly Machine Tender Name Role Phone Name, Vignesh MCCANN Primary Care Provider Encounter Details Date Type Department Care Team (Late st Contact Info) Description 08/07/2022 Abstract [facility] MEDICINE [address] [place] [phone] Name, MD Vignesh [address] [place] [phone] Social History Tobacco Use Types Packs/Day Years Used Date Smoking Tobacco: Never Smokeless Tobacco: Never Sex and Gender Information Value Date Recorded [...] Description 04/17/2024 2:30 PM EST Office Visit [facility] ADULT DENTAL [address] [place] [phone] Drake Clarke, RACHEL [address] [place], [place] [phone] 05/05/2024 2:00 PM EST Clinical Support [facility] MEDICINE [address] [place] [phone] documented as of this encounter Procedures Procedure Name Priority Date/Time Associated Diagnosis Comments HM COLONOSCOPY Routine 10/05/2017 11:49 AM EDT documented in this encounter Results * Hm Colonoscopy (10/05/2017 11:49 AM EDT) Colonoscopy Normal Normal Narrative Adwoa Melara - 10/05/2017 11:49 AM EDT Recommended 5 year follow up us Historical Provider HEALTH MAINTENANCE Final Result documented in this encounter Visit Diagnoses Not on filedocumented in this encounter Care Teams Keymodule Assembly Machine Tender Relationship Specialty Start Date End Date Name, MD Vignesh [address] [place] [address] PCP - General Family Medicine 04/15/15 documented as of this encounter
--- OUTSIDE RECORDS SUMMARY | 2024-04-14 08:26 | XMS_ITS | Encounter Summary ---
Author Organization [employer] [facility] Address [address] [place] [address] [address]t [place] [address] Care Team Providers Care Ad Operations Specialist Name Role Phone Name, Vignesh MCCANN Primary Care Provider [phone] Encounter Details Date Type Department Care Team (Latest Contact Info) Description 10/29/2020 Abstract [facility] CONVERSIONS Dental, Provider, DDS Social History Tobacco [...] Description 04/17/2024 2:30 PM EST Office Visit [facility] ADULT DENTAL [address] [place] [address] Drake Clarke, RACHEL [address] [place] [address] 05/05/2024 2:00 PM EST Clinical Support [facility] MEDICINE [address] [place] [address] documented as of this encounter Visit Diagnoses Not on filedocumented in this encounter Care Teams Ad Operations Specialist Relationship Specialty Start Date End Date Name, MD Vignesh [address] [place] [address] PCP - General Family Medicine 04/15/15 documented as of this encounter
--- OUTSIDE RECORDS SUMMARY | 2024-04-14 08:26 | XMS_ITS | Encounter Summary ---
Author Organization [email or web address] Address [address] [facility] 7t [place] [address] Care Team Providers Care Story Teller Name Role Phone Name, Vignesh MCCANN Primary Care Provider [phone] Reason for Visit * Reason Comments Pre-visit Planning (Unable to reach for PVP screening, LVM) Encounter Details Date Type Department Care Team ([facility] Contact Info) Description 03/20/[address] [facility] MEDICINE [address] [place], [place] [phone] Name, MD Vignesh [address] [place] [address] Pre-visit Planning ((Unable to reach for PVP screening, LVM)) Social History Tobacco Use Types Packs/Day Years [...] AM EDT documented as of this encounter Progress Notes * Nessa Garcia - 03/20/2024 9:24 AM EST JU Szymanski. Placed outbound call to patient to complete pre-visit planning. No answer at this time. Patient name and were not confirmed. CC left voicemail requesting return call. Direct contact information provided. documented in this encounter Plan of Treatment Upcoming Encounters Date Type Department Care Team (Late st Contact Info) Description 04/17/2024 2:30 PM EST Office Visit [facility] ADULT DENTAL [address] [place] [address] Drake Clarke, RACHEL [address] [place] [address] 05/05/2024 2:00 PM EST Clinical Support [facility] MEDICINE [address] [place] [address] documented as of this encounter Visit Diagnoses Not on filedocumented in this encounter Additional Health Concerns Assessment Noted Time PHQ-9 Depression Total Score: 0 11/10/19 23 11:25 AM EDT documented as of this encounter Care Teams Story Teller Relationship Specialty Start Date End Date Name, MD Vignesh [address] [place] [address] PCP - General Family Medicine 04/15/15 documented as of this encounter
--- OUTSIDE RECORDS SUMMARY | 2024-04-14 08:26 | XMS_ITS | Encounter Summary ---
Author Organization [email or web address] Address [address] [facility] [address] [facility] [address] [place] [address] Care Team Providers Care Customer Engineering Specialist Name Role Phone Name, Vignesh MCCANN Primary Care Provider [phone] Reason for Visit * Reason Comments Routine Cleaning Dental Exam FMX Perio chart Encounter Details Date Type Department Care Team ([facility] st Contact Info) Description 03/21/2024 10:00 AM EST Office Visit [facility] [address], [place] [id number] Kristina Mendez [address] [place] [address] Dental calculus (Primary Dx); Rotated tooth; Excessive attrition of teeth, limited to enamel; Periodontal disease; Missing teeth, acquired; Localized gingival recession; Crowded teeth Social History Tobacco Use Types Packs/Day Years [...] Sign Reading Time Taken Comments Blood Pressure 132/76 03/21/2024 10:08 AM EST Pulse - - Temperature - - Respiratory Rate - - Oxygen Saturation - - Inhaled Oxygen Concentration - - Weight - - Height - - Body Mass Index - - documented in this encounter Progress Notes * Kristina Mendez - 03/21/2024 10:00 AM EST Patient ID: Benja Riggs is a 63 y.o. male. Time Out: Timeout Date: 03/21/24, Timeout Time: 1014 (FMX, Perio chart, P. exam, Prophy) Location: [facility] Tooth: Maxilla and Mandible Procedure: Exam, X-rays, Prophylaxis, and Perio chart EXAM BY DR. Clarke. Verified the above with patient, media center assistant, and provider. Confirmed via patient's chart, intraorally and by radiographs. Avionics Installer: not applicable Medical Hx: Vitals: Blood pressure 132/76. Medications, Med Hx reviewed with patient and updated in chart. Treatment Provided Dental procedures in this visit D1110 - PROPHYLAXIS - ADULT (Completed) Service provider: Kristina Mendez Billing provider: Drake Clarke DMD D0210 - DIAGNOSTIC - DIAGNOSTIC IMAGING - INTRAORAL - COMPREHENSIVE SERIES OF RADIOGRAPHIC IMAGES (Completed) Service provider: Kristina Mendez Billing provider: Drake Clarke DMD D1330 - ORAL HYGIENE INSTRUCTIONS (Completed) Service provider: Kristina Mendez Billbaldo provider: Drake Clarke DMD D9450 - ADJUNCTIVE GENERAL SERVICES - PROFESSIONAL VISITS - CASE PRESENTATION, SUBSEQUENT TO DETAILED AND EXTENSIVE TREATMENT PLANNING (Completed) Service provider: Kristina Mendez Billing provider: Drake Clarke DMD Instruments Used: Ultrasonic Scalers and Prophy angle Fluoride: N/A Oral Cancer Screening: No lesions Head/Neck Exam: No Lesions Calculus: Moderate and Subgingival Plaque: Light, Moderate, and Generalized Stain: discolored Bleeding: Light and Generalized Gingiva: Recession- localized and [place], rolled , recession [place]: Fair Perio Chart: Completed: deep pockets, 2 mm to 7 mm pockets. Requesting 4 quads SRP D4342. Oral hygiene instructions provided to patient including brushing technique and flossing. Recommendations: [place] two times daily, modified ricardo technique, Floss daily, Electric toothbrush, Soft bristle toothbrush, [place] Tongue, Anti-sensitivity toothpaste Recall Frequency: SRP if approved NV: crown prep Dr. Clarke 04/17/24. Hygienist: Kristina Mendez RDH Cosigned by Drake Clarke DMD at 03/21/2024 1:27 PM EST * Drake Clarke DMD - 03/21/2024 10:00 AM EST C/C: dental exam I.O.E: erythematous and edematous gingiva, gen plaque and calculus accumulation, gingival recessionteeth E.O.E: wnl OCS: wnl Head and neck: wnl Radiographic: gen moderate periodontal bone loss, existing RCT#7, calculus accumulation Dx: gen chronic moderate periodontitis, gingival recession teeth, existing RCT#7 Tx: prophy, recall exam, P&C and crown #7, SRP X 4 QUADS Freda documented in this encounter Plan of Treatment Upcoming Encounters Date Type Department Care Team (Late st Contact Info) Description 04/17/2024 2:30 PM EST Office Visit [facility] [address] [place] [address] Tricia Drake, DMD [address] [place] [address] 05/05/2024 2:00 PM EST Clinical Support [facility] [address] [place] [address] Scheduled Orders Name Type Priority Associated Diagnoses Orde r Schedule UL UL PERIODONTAL SCALING AND ROOT PLANING - 1 TO 3 TEETH PER QUADRANT Dental Routine [address] arting 03/21/2024 LL LL PERIODONTAL SCALING AND ROOT PLANING - 1 TO 3 TEETH PER QUADRANT Dental Routine [address] arting 03/21/2024 UR UR PERIODONTAL SCALING AND ROOT PLANING - 1 TO 3 TEETH PER QUADRANT Dental Routine [address] arting 03/21/2024 LR LR PERIODONTAL SCALING AND ROOT PLANING - 1 TO 3 TEETH PER QUADRANT Dental Routine [address] arting 03/21/2024 documented as of this encounter Procedures Procedure Name Priority Date/Time Associated Diagnosis Comments PROPHYLAXIS - ADULT Routine 03/21/2024 1 0:00 AM EST Dental calculus Periodontal disease ORAL HYGIENE INSTRUCTIONS Routine 2024 10:00 AM EST Dental calculus Rotated tooth Excessive attrition of teeth, limited to enamel Periodontal disease Missing teeth, acquired Localized gingival recession DIAGNOSTIC - DIAGNOSTIC IMAGING - INTRAORAL - COMPREHENSIVE SERIES OF RADIOGRAPHIC IMAGES Routine 03/21/2024 10:00 AM EST Dental calculus Rotated tooth Excessive attrition of teeth, limited to enamel Periodontal disease Missing teeth, acquired Localized gingival recession ADJUNCTIVE GENERAL SERVICES - PROFESSIONAL VISITS - CASE PRESENTATION, SUBSEQUENT TO DETAILED AND EXTENSIVE TREATMENT PLANNING Routine 03/21/2024 10:00 AM EST Dental calculus Rotated tooth Excessive attrition of teeth, limited to enamel Periodontal disease Missing teeth, acquired Localized gingival recession documented in this encounter Visit Diagnoses Diagnosis Dental calculus- Primary Accretions on teeth Rotated tooth Excessive attrition of teeth, limited to enamel Periodontal disease Unspecified gingival and periodontal disease Missing teeth, acquired Localized gingival recession Gingival recession, localized Crowded teeth Crowding of teeth documented in this encounter Additional Health Concerns Assessment Noted Time PHQ-9 Depression Total Score: 0 11/10/19 23 11:25 AM EDT documented as of this encounter Care Teams Customer Engineering Specialist Relationship Specialty Start Date End Date Name, MD Vignesh [address] [place] [address] PCP - General Family Medicine 04/15/15 documented as of this encounter
--- OUTSIDE RECORDS SUMMARY | 2024-04-14 08:26 | XMS_ITS | Clinical Summary ---
Author Organization [employer] Address [address] [facility] [address] [place] [address] Care Team Providers Care Casino Accountant Name Role Phone Name, Deion MCCANN Primary Care Provider [phone] Allergies Active Allergy Reactions Criticality Noted Date Comments Lisinopril Cough High 07/03/2017 Medications Alcohol Swabs pads test blood sugars twice a day 11/15/19 13 Active Diclofenac Sodium 1 % gel apply (2G) by topical route 2 times every day to the affected area(s) 12/22/19 22 Active glucose blood (FREESTYLE LITE) test strip USE 1 Each by DIRECTED route 2 times every day 04/14/19 20 Active omeprazole (PriLOSEC) [address] capsule take 1 capsule by oral route every day 30 minutes to 1 hour before a meal 01/18/20 18 Active traZODone (Desyrel) 50 MG tablet take 1 tablet by oral route every day at bedtime 05/09/19 18 Active fluticasone (Flonase) 50 MCG/ACT nasal spray 08/13/19 15 Active losartan (Cozaar) 100 MG tabletIndicati ons:Type 2 diabetes mellitus without complication, without long-term current use of insulin ([facility]),Esse ntial hypertension,C hronic pain of right knee Take 1 tablet (100 mg) by mouth in the morning. 30 tablet 11 05/30/19 24 025 Active Aspirin Adult Low Strength 81 MG EC tablet TAKE 1 TABLET BY MOUTH EVERY MORNING 90 tablet 1 08/21/19 24 Active sildenafil (Viagra) 50 MG tablet Take 1 tablet (50 mg) by mouth if needed each day for erectile dysfunction. 10 tablet 1 09/19/19 24 Active mometasone (Elocon) 0.1 % ointmentIndica tions:Poison aislinn dermatitis APPLY TO THE AFFECTED AREA(S) ONCE DAILY 45 g 1 11/23/19 24 Active Acetaminophen 500 MG capsuleIndicat ions:Influenza B Take 1 capsule (500 mg) by mouth every 6 (six) hours if needed for moderate pain. 60 capsule 01/07/20 24 Active Blood Pressure kit 1 each 2 times daily. 1 kit 01/07/20 24 025 Active ibuprofen (IBU) 600 MG tablet TAKE 1 TABLET BY MOUTH THREE TIMES DAILY WITH FOOD NEEDED 90 tablet 03/18/19 25 Active metFORMIN (Glucophage) 1000 MG tabletIndicati ons:Type 2 diabetes mellitus without complication, without long-term current use of insulin (CMS/HCC) TAKE 1 TABLET BY MOUTH TWICE DAILY IN THE MORNING AND IN THE EVENING WITH MEALS 180 tablet 1 03/18/19 25 Active pravastatin (Pravachol) 20 MG tablet TAKE 1 TABLET BY MOUTH EVERY DAY AT BEDTIME 90 tablet 1 03/18/19 25 Active Dulaglutide (Trulicity) 0.75 MG/0.5ML solution auto-injector Inject 0.75 mg under the skin 1 (one) time per week. 2 mL 04/01/19 25 025 Active metFORMIN (Glucophage) 1000 MG tabletIndicati ons:Type 2 diabetes mellitus without complication, without long-term current use of insulin (CMS/HCC) TAKE 1 TABLET BY MOUTH TWICE DAILY IN THE MORNING AND IN THE EVENING WITH MEALS 180 tablet 1 10/31/19 23 025 Discontinued(Re order (will not trigger notification to Pharmacy)) pravastatin (Pravachol) 20 MG tablet TAKE 1 TABLET BY MOUTH EVERY DAY AT BEDTIME 90 tablet 1 01/02/20 23 025 Discontinued(Re order (will not trigger notification to Pharmacy)) ibuprofen (IBU) 600 MG tablet TAKE 1 TABLET BY MOUTH THREE TIMES DAILY WITH FOOD NEEDED 90 tablet 11/02/19 24 025 Discontinued(Re order (will not trigger notification to Pharmacy)) acetaminophen (Tylenol 8 Hour) 650 MG ER tablet Take 1 tablet (650 mg) by mouth every 8 (eight) hours if needed for moderate pain for up to 10 days. Do not crush, chew, or split. 15 tablet 03/17/19 25 025 Active Problems Problem Noted Date Diagnosed Date Dental calculus 03/21/2024 Rotated tooth 03/21/2024 Excessive attrition of teeth, limited to enamel 03/21/2024 Periodontal disease 03/21/2024 Missing teeth, acquired 03/21/2024 Localized gingival recession 03/21/2024 SYDNIE on CPAP 09/19/2023 Other male erectile dysfunction 09/19/2023 Knee pain 01/17/2018 Adenoma of large intestine 10/17/2017 Overview (11/09/2022): [facility] REPORT OF OPERATION PATIENT NAME: BENJA FERGUSON DATE OF : 62 LOCATION: [facility] DATE OF OPERATION: 10/05/17 PCP: DEION LEMONS MD ==== PROCEDURE DONE: Colonoscopy with polypectomy using cold forceps. PREOPERATIVE DIAGNOSIS: Colon cancer screening. POSTOPERATIVE DIAGNOSES: 1. Small polyp about 2 mm in size in the mid transverse colon. 2. Occasional diverticula. 3. Lipoma, right colon near the flexure. INDICATION: The patient is a 57-year-old male referred for screening colonoscopy. He understood the technique of the procedure. He was aware of the risks, benefits, and alternatives. PREOPERATIVE DIAGNOSES: He was brought to the operating room and placed in left lateral decubitus position under monitored anesthesia care. A full digital rectal exam was done. There were no palpable anal canal lesions. The tip of the Olympus colonoscope was introduced through the anal orifice and advanced through the entire length of the colon all the way to the cecum. The cecum was intubated. The cecum was identified via visualization of the ileocecal valve, as well as the appendiceal orifice. The cecal mucosa was unremarkable. The scope was gradually withdrawn with careful examination of the entire colonic mucosa being done with scope withdrawal. The patient had good bowel prep, so it is unlikely that any lesion may have been missed. There was note of a lipoma in the right colon near the hepatic flexure. There was note of a small polyp in the mid transverse colon about 2 mm in size and this was removed using cold forceps. The patient with scattered diverticula. The rectum was reached and there were no lesions seen. The scope was then withdrawn completely with desufflation. The patient tolerated the procedure well. No complications noted. He falls at average risk for colon cancer, so his next colonoscopy may be in the next 10 years. Miguel Delgado MD Tinea pedayaka 10/17/2017 Cough due to DYAN inhibitor 04/30/2015 Essential hypertension 08/07/2011 Pure hypercholesterolemia 08/07/2011 Type II diabetes mellitus 08/07/2011 Resolved Problems Problem Noted Date Diagnosed Date Resolved Date Influenza B 06/07/2023 09/20/2023 Assessment & Plan (06/07/2023 1:13 PM EDT): Positive Plan: Acetaminophen PRN for fever Supportive measures, Guaifenesin PRN Tamiflu 75 mg po BID x 5 days Sore throat 06/07/2023 09/20/2023 Acute cough 06/07/2023 09/20/2023 Assessment & Plan (06/07/2023 1:21 PM EDT): Pt with c/o cough productive of yellow phlegm x 3 days accompanied by fever Pt is diabetic and tested positive for Influenza Plan: Will treat influenza but given the fact that his diabetes makes him immunosuppressed and he is c/o purulent phlegm I am concerns about superimposed Pneumonia. So will obtain a chest x-ray and will add a Z-pack Pt agreeable with plan, instructed to come back if symptoms do not improve or worsen Diabetes 05/30/2023 09/20/2023 Trigger finger, left ring finger 02/07/2023 09/20/2023 LFT elevation 12/27/2016 11/09/2022 Candidal balanitis 12/26/2016 3 Disorder of bursae and tendo ns in shoulder region 06/15/2014 09/20/2023 Sprain of rotator cuff capsule 06/15/2014 09/20/2023 Backache 08/07/2011 09/20/2023 Pain in joint involving lower leg 08/07/2011 09/20/2023 Encounters Date Type Department Care Team Description 04/01/2024 2:00 PM EST Office Visit [address] [phone] Deion Lemons MD Type 2 diabetes mellitus without complication, without long-term current use of insulin ([facility]) (Primary Dx); SYDNIE on CPAP 04/01/2024 Travel 03/21/2024 10:00 AM EST Office Visit [facility]ULT [facility] [address] [place] [phone] Kristina Mendez Dental calculus (Primary Dx); Rotated tooth; Excessive attrition of teeth, limited to enamel; Periodontal disease; Missing teeth, acquired; Localized gingival recession; Crowded teeth 03/20/2024 Patient Outreach [address] [phone] Deion Lemons MD Pre-visit Planning ((Unable to reach for PVP screening, LVM)) 03/18/2024 Refill [facility] [address] [place], [place] [phone] Deion Lemons MD Type 2 diabetes mellitus without complication, without long-term current use of insulin ([facility]) 03/17/2024 2:30 PM EST Office Visit [facility]ULT [facility] [address] [place] [phone] Mojgan Hernandez, DDS Excessive attrition of teeth, limited to enamel (Primary Dx) 02/25/[address] [phone] Malinda Ash, CULLEN 01/18/2024 3:30 PM EST Office Visit [facility] [address] [place] [phone] Drake Clarke DMD from Last 3 Months Immunizations Name Administration Dates Next Due Influenza injectable quadriv alent IIV4 with preservative 11/09/2022,11/19/2018,01/17/2018,12/26,12/30/2014 Influenza injectable quadriv alent preservative free 02/09/2021,12/26/2016 Influenza, IIV3, injectable 01/16/2011 Influenza, Split (incl. nancie fied surface antigen) 03/19/2012 Moderna Covid-19 Vaccine 12+ 05/30/2021,07/15/19 21,06/15/2020 Pneumococcal Conjugate PCV 20 05/30/2023 Pneumococcal Polysaccharide PPSV23 07/28/2009 TD (adult), 2 Lf tetanus tox oid, preservative free, adsorbed 07/28/2009 Tdap 11/09/2022,06/07/2012 Social History Tobacco Use Types Packs/Day Years [...] not to disclose 2021 10:20 AM EDT Last Filed Vital Signs Vital Sign Reading [...] Mass Index 37.84 04/01/2024 2:07 PM EST Plan of Treatment Upcoming Encounters Date Type Department Care Team (Late st Contact Info) Description 04/17/2024 2:30 PM EST Office Visit [facility]ULT [facility] [address] [place], [place] [phone] Drake Clarke, DMD [address], [place] [phone] 05/05/2024 2:00 PM EST Clinical Support [facility] MEDICINE [address] [place], [place] [phone] Health Maintenance Due Date Last Done Comments Anal Pap 1961 CT Colonography 1961 FIT DNA/Cologuard 1961 FIT 1961 FOBT 1961 HIV Screening 1961 Sigmoidoscopy 1961 Hepatitis A Vaccines (1 of 2 - Risk 2-dose series) 1980 Zoster Vaccines (1 of 2) 07/16/2011 Hepatitis B Vaccines (1 of 3 - Risk 3-dose series) 2021 Dental Oral Exam 02/22/2023 08/22/2022, 08/2021, 10/15/2020, Additional history exists COVID-19 Vaccine () 11/04/2023 05/30/2021, 07/14/2020, 06/15/2020 Influenza Vaccine (#1) 2023 , 02/09/2021, 11/19/2018, Additional history exists Depression Screening 11/10/2023 11/09/2022, 11/10/19 23 SDOH Screening 11/10/2023 11/09/2022 Diabetes: Foot Exam 01/30/2024 01/29/2023, 01/29/2023, 01/29/2023, Additional history exists Diabetes: Urine Protein Screening 06/20/2024 06/21/2023, 11/14/2022, 02/23/2022, Additional history exists Lipid Panel 06/20/2024 06/21/2023, 11/03, 02/23/2022, Additional history exists Diabetes: Hemoglobin A1C 06/30/2024 025, 09/19/2023, 01/29/2023, Additional history exists Alcohol/Substance Use Screening 09/18/2024 09/19/2023 Dental Prophylaxis 09/19/2024 03/21/2024, 0 09/04/2022, 12/08/2021, Additional history exists Dental X-Ray: Bitewings 03/22/2025 03/21/19 25, 12/08/2021, 10/15/2020, Additional history exists Eye Exam 03/22/2025 03/22/2023, 03/05, 03/22/2023, Additional history exists Tobacco Screening 04/01/2025 04/01/2024 Dental X-Ray: Full Mouth 03/22/2027 03/21/2024, 10/03 Colonoscopy 10/06/2027 10/05/2017 Colorectal Cancer Screening 10/06/2027 DTaP/Tdap/Td Vaccines (3 - Td or Tdap) 11/09/2032 11/09/2022, 06/07/2012, 07/28/2009 RSV Patients and Patients Aged 60 years or older (1 - 1-dose 75+ series) 2036 Hepatitis C Screening Completed 01/29/2023 Pneumococcal Vaccine: 50+ Years Completed 05/30/2023, 07/28/2009 HIB Vaccines Aged Out No longer eligi ble based on patient's age to complete this topic HPV Vaccines Aged Out No longer eligi ble based on patient's age to complete this topic IPV Vaccines Aged Out No longer eligi ble based on patient's age to complete this topic Meningococcal Vaccine Aged Out No frantz lynnette eligible based on patient's age to complete this topic RSV under 20 months Aged Out No longe r eligible based on patient's age to complete this topic Rotavirus Vaccines Aged Out No longer eligible based on patient's age to complete this topic Procedures Procedure Name Priority Date/Time Associated Diagnosis Comments POCT GLYCATED HEMOGLOBIN, TOTAL Routine 04/01/2024 2:09 PM EST Type 2 diabetes mellitus without complication, without long-term current use of insulin ([facility]) POCT GLUCOSE Routine 04/01/2024 2:08 PM EST Type 2 diabetes mellitus without complication, without long-term current use of insulin ([facility]) ADJUNCTIVE GENERAL SERVICES - PROFESSIONAL VISITS - CASE PRESENTATION, SUBSEQUENT TO DETAILED AND EXTENSIVE TREATMENT PLANNING Routine 03/21/2024 10:00 AM EST Dental calculus Rotated tooth Excessive attrition of teeth, limited to enamel Periodontal disease Missing teeth, acquired Localized gingival recession ORAL HYGIENE INSTRUCTIONS Routine 03/21/2024 10:00 AM EST Dental calculus Rotated tooth Excessive attrition of teeth, limited to enamel Periodontal disease Missing teeth, acquired Localized gingival recession DIAGNOSTIC - DIAGNOSTIC IMAGING - INTRAORAL - COMPREHENSIVE SERIES OF RADIOGRAPHIC IMAGES Routine 03/21/2024 10:00 AM EST Dental calculus Rotated tooth Excessive attrition of teeth, limited to enamel Periodontal disease Missing teeth, acquired Localized gingival recession PROPHYLAXIS - ADULT Routine 03/21/2024 1 0:00 AM EST Dental calculus Periodontal disease ADJUNCTIVE GENERAL SERVICES - PROFESSIONAL VISITS - CASE PRESENTATION, SUBSEQUENT TO DETAILED AND EXTENSIVE TREATMENT PLANNING Routine 03/17/2024 2:30 PM EST 7 ENDODONTICS - ENDODONTIC THERAPY (INCLUDING TREATMENT PLAN, CLINICAL PROCEDURES AND FOLLOW-UP CARE) - ENDODONTIC THERAPY, ANTERIOR TOOTH (EXCLUDING FINAL CONGREGATIONAL) Routine 03/17/2024 2:30 PM EST ADJUNCTIVE GENERAL SERVICES - PROFESSIONAL VISITS - CASE PRESENTATION, SUBSEQUENT TO DETAILED AND EXTENSIVE TREATMENT PLANNING Routine 01/18/2024 3:30 PM EST 7 INTRAORAL - PERIAPICAL FIRST RADIOGRAPHIC IMAGE Routine 01/18/2024 3:30 PM EST 7 LIMITED ORAL EVALUATION - PROBLEM FOCUSED Routine 01/18/2024 3:30 PM EST AMB REFERRAL TO SLEEP MEDICINE Routine 01/14/2024 SYDNIE (obstructive sleep apnea) ALBUMIN, RANDOM URINE W/CREATININE Routine 06/21/2023 1:37 PM EDT Type 2 diabetes mellitus without complication, without long-term current use of insulin (CMS/HCC) Essential hypertension Chronic pain of right knee LIPID PANEL, STANDARD Routine 06/21/2023 1:37 PM EDT Type 2 diabetes mellitus without complication, without long-term current use of insulin (CMS/HCC) Essential hypertension Chronic pain of right knee HEPATITIS C ANTIBODY Routine 01/29/2023 11:46 AM EST Need for hepatitis C screening test PERIODIC ORAL EVALUATION - ESTABLISHED PATIENT Routine 08/22/2022 2:00 PM EDT HM COLONOSCOPY Routine 10/05/2017 11:49 AM EDT from Last 3 Months or Most Recently Relevant to Health Maintenance Results * (ABNORMAL) POCT HGB A1C (04/01/2024 2:09 PM EST) Hemoglobin A1C 11.7(A) 4.0 - 6.0 % QC Media Lot # [id number] Lot# Expiration Date [id number] Blood 04/01/2024 2:09 PM EST us Deion Lemons MD POINT OF CARE TEST ENTER/EDIT OR DERABLES Final Result * (ABNORMAL) POCT Glucose (04/01/2024 2:08 PM EST) Glucose Blood, POC 359(A) 60 - 200 mg/dL QC Media Lot # [id number] Lot# Expiration Date 53,[id number] Blood Capillary blood specimen / Unknown 04/01/2024 2:08 PM EST us Deion Lemons MD POINT OF CARE TEST ENTER/EDIT OR DERABLES Final Result * Referral to Sleep Medicine (01/14/2024) us Deion Lemons MD OUTPATIENT REFERRAL ORDERABLES F inal Result * Albumin, Random Urine W/Creatinine (06/21/2023 1:37 PM EDT) Creatinine, Urine 244.72 mg/dL [facility] Microalbumin Urine 28.0 mg/L [facility] Microalbum Creatinine Ratio Ur 11.4 <30 ug/mg cr [facility] Comment:Albumin/Creatinine R atio Reference Ranges: Normal: < 30 ug/mg creatinine Microalbuminuria: 30 - 300 ug/mg creatinineClinical Albuminuria: > 300 ug/mg creatinine Urine (Urine, Random) 06/21/2023 1:37 PM EDT 06/21/2023 3:58 PM EDT us Deion Lemons MD LAB URINE ORDERABLES Final Resul t [facility] [address] [place] [phone] * Lipid Panel, Standard (06/21/2023 1:37 PM EDT) Triglycerides 130 <150 mg/dL [facility] Comment:Desirable Triglyceri de: less than 150 mg/dLBorderline High Triglyceride 150-199 mg/dLHigh Triglyceride: 200-499 mg/dLVery High Triglyceride: greater than or equal to 5OO mg/dL Cholesterol 147 <200 mg/dL [facility] Comment:Desirable Cholestero l: less than 200 mg/dLBorderline High Cholesterol: 200-239 mg/dLHigh Cholesterol: greater than 239 mg/dL LDL Cholesterol Calculated 75 <100 mg/dL [facility] Comment:Desirable LDL: less than 100 mg/dLNear Optimal/Above Optimal LDL: 110- 129 mg/dLBorderline High LDL: 130-159 mg/dLHigh LDL: 160-189 mg/dLVery High LDL: greater than or equal to 190 mg/dL HDL Cholesterol 46 >40 mg/dL [facility] Comment:Desirable HDL: great er than 40 mg/dL Note: This HDL assay may give artificially low results in patients with liver disease. Blood Venous blood specimen / Unknown 06/21/2023 1:37 PM EDT 06/21/2023 3:52 PM EDT Deion Lemons MD LAB BLOOD ORDERABLES Final Resul t Performing Organization Address [facility] Co de Phone Number [facility] [address] [place] [phone] * Hepatitis C Ab (01/29/2023 11:46 AM EST) Hepatitis C Antibody Nonreactive Nonreactive [facility] Comment:Antibodies to HCV no t detected; does not exclude early acuteHCV infection. Blood Venous blood specimen / Unknown 01/29/2023 11:46 AM EST 01/29/2023 1:28 PM EST Deion Lemons MD LAB BLOOD ORDERABLES Final Resul t Performing Organization Address [facility] de Phone Number [facility] [address] [place] [phone] * Hm Colonoscopy (10/05/2017 11:49 AM EDT) Colonoscopy Normal Normal Narrative Adwoa Melara - 10/05/2017 11:49 AM EDT Recommended 5 year follow up Historical Provider HEALTH MAINTENANCE Final Result from Last 3 Months or Most Recently Relevant to Health Maintenance Insurance [facility] FULL [facility] C3 DENTAL-[facility] MEDICAID STAND ADULT Care Teams Casino Accountant Relationship Specialty Start Date End Date Name, MD Deion [address] [place] [phone] PCP - General Family Medicine 04/15/15
[2024-04-14 11:06] LABS: MANUAL DIFF FLAG NO
[2024-04-14 11:13] LABS: Basophils Absolute Auto 0.1 X10*3/uL (0.0-0.2); Basophils Percent Auto 0.8 % (0-2); Eosinophils Absolute Auto 0.2 X10*3/uL (0.0-0.4); Eosinophils Percent Auto 2.3 % (0-4); Hematocrit 45.1 % (42.0-52.0); Hemoglobin 14.5 g/dl (14.0-18.0); Imm Gran Abs Auto 0.03 X10*3/uL (0.00-0.03); Imm Gran Pct Auto 0.3 % (0.0-0.4); Lymphocytes Percent Auto 22.3 % (20-40); Mean Corpuscular HGB Conc 32.2 g/dl (31.0-36.0); Mean Corpuscular Hemoglobin 28.4 pg (27.0-33.0); Mean Corpuscular Volume 88.3 fL (80.0-98.0); Mean Platelet Volume 12.8 fL (9.4-12.4); Monocytes Absolute Auto 0.5 X10*3/uL (0.1-1.2); Monocytes Percent Auto 5.8 % (2-11); Neutrophils Percent Auto 68.5 % (45-73); Platelet Count 231 X10*3/uL (160-400); Red Blood Count 5.11 X10*6/uL (4.60-5.80); Red Cell Distribution Width 12.8 % (11.0-16.0); White Blood Count 8.8 X10*3/uL (4.8-10.8)
[2024-04-14 11:29] LABS: Alanine Aminotransferase 26 U/L (0-40); Alkaline Phosphatase 81 U/L (39-117); Anion Gap 10 (12-20); Aspartate Amino Transferase 33 U/L (5-37); Bilirubin Total 0.4 mg/dL (0.0-1.0); Blood Urea Nitrogen 15 mg/dL (9-16); Carbon Dioxide 27 mmol/L (22-29); Chloride 106 mmol/L (96-108); Cholesterol 135 mg/dL (<200); Estimated Glomerular Filt Rate > 60; Glucose Random 178 mg/dL (60-115); HDL Cholesterol 49 mg/dL (>40); LDL Cholesterol Calculated 66 mg/dL (<100); Potassium 4.4 mmol/L (3.3-5.1); Sodium 139 mmol/L (135-145); Total Protein 7.5 g/dL (6.5-8.0); Triglycerides 101 mg/dL (<150)
[2024-04-14 11:38] LABS: Creatinine Urine 170.31 mg/dL; Microalbum/Creatinine Ratio Ur 11.7 ug/mg cr (<30)
== END 2024-04-14 08:13 | disposition home or self-care (01) ==
LOC: HO.HHCL 08:12
PROVIDERS: Visit Provider Internal Medicine Geriatric Medicine
DX: E11.9 Type 2 diabetes mellitus without complications (principal)
CPT/HCPCS: 36415; 80053; 80061; 82043; 82570; 85025